=== PATIENT | male | born 1960 | race Hispanic/Latino ===

== ENCOUNTER 2017-02-02 06:57 | Day surgery (SDC) | payer BC ==
[2017-02-02] MEDS ORDERED: ECOTRIN PO ONE (07:24)
[2017-02-02] MEDS ORDERED: NACL 0.9% 500 ML 500 ML IV SCH (08:00)
[2017-02-02] MEDS ORDERED: VERSED ONE (09:06)
[2017-02-02] MEDS ORDERED: SUBLIMAZE ONE (09:06)
[2017-02-02] MEDS ORDERED: HEPARIN 10,000 UNITS/10 ML ONE (09:07)
[2017-02-02] MEDS ORDERED: NITROGLYCERIN SYRINGE 3 ML ONE (09:07)
[2017-02-02] MEDS ORDERED: HEPARIN/NS 5000 UNIT/500ML(CATH LAB) 1,000 ML IR ONE (09:07)
[2017-02-02] MEDS ORDERED: CALAN ONE (09:07)
[2017-02-02] MEDS ORDERED: XYLOCAINE 2% INFILTRATI ONE (09:07)
--- NOTE | 2017-02-02 10:15 | Short Stay Summary ---
Short Stay Documentation Date of service: 02/02/17 - History H&P: obtained from office - Allergies and Medications Current Medications: Allergies No Known Allergies Allergy (Verified 02/02/17 07:23) Home Medications Medication Instructions Recorded Confirmed Last Taken Type Aspirin EC [Aspirin Enteric Coated 81 mg PO QDAY 02/02/17 02/02/17 02/02/17 05: 00 History TAB] AtorvaSTATin [Lipitor] 40 mg PO DAILY 02/02/17 02/02/17 02/02/17 History Multivitamin Tab [Multiple Vitamin 1 each PO QDAY 02/02/17 02/02/17 02/01/17 History TAB (Theragran)] Tamsulosin [Flomax] 0.4 mg PO QDAY 02/02/17 02/02/17 02/01/17 History Active Medications Sodium Chloride (Nacl 0.9% 500 Ml) 500 mls @ 50 mls/hr IV DIRECT DERIAN Stop: 02/02/17 17:59 Last Admin: 02/02/17 07:32 Dose: 50 mls/hr - Brief post op/procedure progress note Date of procedure: 02/02/17 Pre-op diagnosis: cad Post-op diagnosis: same Procedure: see report Anesthesia: local Estimated blood loss: none Pathology: none - Disposition Condition at discharge: Good - Discharge Diagnoses (1) CAD (coronary artery disease) Status: Chronic Qualifiers: Coronary Disease-Associated Artery/Lesion type: [place] artery [place] vs. transplanted heart: N Associated angina: A (2) Hyperlipemia, mixed Status: Chronic (3) SOB (shortness of breath) on exertion Status: Acute Short Stay Discharge Plan Activity: advance as tolerated Diet: low fat, low cholesterol, low salt Wound: keep clean and dry Follow up with: ALIYAH CONDE MD [Staff Physician] - 7 Days
[2017-02-02 12:56] VITALS: BP 126/75
--- NOTE | 2017-02-02 17:32 | Cardiac Catherization Report ---
LEFT HEART CATHETERIZATION CLINICAL INFORMATION: This is a 57-year-old gentleman with premature family history of coronary artery disease, had known coronary artery disease and moderate calcification in 2012. Repeat coronary calcium score was severe, has some shortness of breath at times and is here for a left heart catheterization. Left heart catheterization performed via the right radial artery, sterile technique, local anesthesia, 6-[place] radial sheath inserted. Left system engaged with a 5-[place] JL3.5 guiding catheter. FINDINGS: Left main is large and patent, bifurcates into large caliber LAD, proximal is patent, but mid late proximal and early mid the bifurcation point has a 95% lesion as a post-stenotic dilatation and ectasia versus aneurysm and has an ostial diagonal 1 that has an 80% lesion of 2-0 vessel. The rest of the LAD is a large caliber vessel, is patent. Circumflex is a medium caliber vessel, is patent with mild luminal irregularities in proximal section, goes into a medium caliber OM1 that is patent. RCA engaged with JR4 catheter, is a large dominant vessel, proximal 20%, mid to distal is a large caliber, patent. PDA and PLV medium caliber vessel that is patent. LV gram done in the CHIQUI and FALCON view shows normal LV function. LVEDP is 17 mmHg, LV is 140/17, aortic is 135/85. No gradient across the aortic valve on pullback. 5-[place] catheters were taken over a guidewire. A 6-[place] radial sheath was discontinued. Radial dressing applied. No hematoma. No bleeding. SUMMARY: 1. Significant late proximal, early mid focal 95% lesion with poststenotic dilatation. In view of bifurcation with an ostial diagonal 1, he will be referred to [place] for robotic NI to LAD. 2. Left main patent, circumflex patent, OM1 patent; RCA proximal 20%, mid to distal patent PDA and PLV. 3. Normal LV function. Discussed this in detail with the patient and the patient's family. JOB# [id number] GUERA/KAUSHIK
== END 2017-02-02 12:35 | disposition home or self-care (01) ==
LOC: OPU 06:57
PROVIDERS: ATTEND Internal Medicine
DX: I25.10 Atherosclerotic heart disease of native coronary artery without angina pectoris (principal); E78.2 Mixed hyperlipidemia; Z79.82 Long term (current) use of aspirin; Z79.899 Other long term (current) drug therapy; Z82.3 Family history of stroke; Z82.49 Family history of ischemic heart disease and other diseases of the circulatory system
CPT/HCPCS: 93005; 93010; 93458; C1894; J1644; J2250; J3010; J7040; Q9967

== ENCOUNTER 2022-06-27 08:13 | Day surgery (SDC) | payer BC ==
[2022-06-27 09:29] LABS: Hematocrit 43.4 % (35.5-45.6); Hemoglobin 14.6 gm/dl (11.8-15.2); Mean Corpuscular HGB Conc 34 % (32-34); Mean Corpuscular Volume 91 fl (84-94); Platelet Count 143 K/mm3 (140-440); Red Blood Count 4.76 M/mm3 (3.65-5.03); Red Cell Distribution Width 13.4 % (13.2-15.2)
[2022-06-27 09:42] LABS: INR 0.82 (0.87-1.13)
[2022-06-27 09:43] LABS: BUN/Creatinine Ratio 12; Blood Urea Nitrogen 12 mg/dL (9-20); Calcium 9.4 mg/dL (8.4-10.2); Hemolysis Index 3
[2022-06-27] MEDS ORDERED: SODIUM CHLORIDE 0.9% 500 ML 500 ML IV SCH (10:00)
[2022-06-27 10:14] LABS: Partial Thromboplastin Time 29.7 Sec. (24.2-36.6)
[2022-06-27] MEDS ORDERED: HEPARIN/NS 5000 UNIT/500ML 1,000 ML IR ONE (10:22)
[2022-06-27] MEDS: fentaNYL 100 MCG/2 ML INJ ONE ×2 (10:43→10:50)
[2022-06-27] MEDS: MIDAZOLAM 2 MG/2 ML INJ ONE ×2 (10:43→10:50)
[2022-06-27] MEDS: VERAPAMIL 5 MG/2 ML INJ ONE ×2 (10:44→10:57)
[2022-06-27] MEDS: LIDOCAINE (2%) 20 MG/1 ML VIAL 20 ML MDV INFILTRATI ONE ×2 (10:44→10:52)
[2022-06-27] MEDS: HEPARIN 10,000 UNITS/10 ML VIAL ONE ×3 (10:44→11:11)
[2022-06-27] MEDS: NITROGLYCERIN SYRINGE 3 ML ONE ×2 (10:45→10:57)
[2022-06-27] MEDS ORDERED: SODIUM CHLORIDE 0.9% 1000 ML 1,000 ML ONE (10:46)
[2022-06-27] MEDS ORDERED: ALUM-MAG HYDROXIDE-SIMETHICONE 200-200-20MG/5ML ORAL LIQD 30 ML ONE (11:13)
[2022-06-27] MEDS ORDERED: CLOPIDOGREL 300 MG TAB ONE (11:13)
[2022-06-27] MEDS ORDERED: HEPARIN/NS 5000 UNIT/500ML 500 ML IR ONE (11:18)
--- NOTE | 2022-06-27 11:45 | Short Stay Summary ---
Short Stay Documentation Date of service: 06/27/22 - History H&P: obtained from office - Allergies and Medications Current Medications: Allergies No Known Allergies Allergy (Verified 02/02/17 07:23) Home Medications Medication Instructions Recorded Confirmed Last Taken Type Aspirin EC [Halfprin EC] 81 mg PO QDAY 02/02/17 06/27/22 06/27/22 History 1 TAB AtorvaSTATin [Lipitor] 40 mg PO DAILY 02/02/17 06/27/22 06/26/22 History 1 TAB Tamsulosin [Flomax] 0.4 mg PO QDAY 02/02/17 06/27/22 06/26/22 History 1 TAB Aspirin [Aspirin BABY CHEW TAB] 81 mg PO QDAY 06/27/22 06/27/22 06/27/22 History 1 TAB Clopidogrel [Plavix] 75 mg PO QDAY 06/27/22 06/27/22 06/27/22 History 1 TAB Ranolazine ER [Ranexa ER] 500 mg PO BID 06/27/22 06/27/22 06/26/22 History 1 TAB Trazodone HCl 100 mg PO BID 06/27/22 06/27/22 06/26/22 History 1 TAB Active Medications Sodium Chloride (Nacl 0.9% 500 Ml) 500 mls @ 50 mls/hr IV DIRECT DERIAN Stop: 06/27/22 19:59 Last Admin: 06/27/22 10:45 Dose: 300 mls - Brief post op/procedure progress note Date of procedure: 06/27/22 Pre-op diagnosis: CAD Post-op diagnosis: same Anesthesia: local Estimated blood loss: minimal - Hospital course Hospital course: Events today for cardiac cath. Patient had PCI of left main to circumflex with 1 JR. See cath report for full details. Patient tolerated procedure well with no complication. Patient meets criteria for same-day discharge. Patient developed a small hematoma that was expressed. Patient to be on DAPT therapy with aspirin and Plavix. Patient will be discharged and follow-up in the office as an outpatient. - Disposition Condition at discharge: Good Disposition: 01 HOME / SELF CARE / HOMELESS - Discharge Diagnoses (1) CAD (coronary artery disease) Status: Chronic (2) Hyperlipemia, mixed Status: Chronic Short Stay Discharge Plan Activity: advance as tolerated Diet: low fat, low cholesterol, low salt Wound: keep clean and dry, per your surgeon's advice Additional Instructions: follow up with Medical Doctor in 1 week, return to Emergency Room for medical emergency. Follow up with: HELEN WELLS PA [Primary Care Provider] - 7 Days ALIYAH CONDE MD [Staff Physician] - 7 Days Forms: CardCat PCI D/C Instructions Prescriptions: Clopidogrel [Plavix] 75 mg PO QDAY 30 Days #30 tablet
[2022-06-27] MEDS ORDERED: ACETAMINOPHEN 325 MG TAB PO PRN (12:00)
[2022-06-27] MEDS ORDERED: HYDROcodone/ACETAMINOPHEN 5-325 MG TAB PO PRN (12:00)
--- NOTE | 2022-06-27 12:37 | Cardiac Catherization Report ---
DATE OF SERVICE: 06/27/2022 LEFT HEART CATHETERIZATION/PERCUTANEOUS CORONARY INTERVENTION/INTRAVASCULAR ULTRASOUND REPORT CLINICAL INFORMATION: This is a 62-year-old male with known coronary arterial disease, hypertension, hyperlipidemia with a NI to LAD. had a negative IFR left main to circumflex, having worsening symptoms of angina and fatigue with activity despite medical therapy, is here for left heart catheterization. Procedure was done with moderate sedation started at 10:50 finished at 11:35, 45 minutes of moderate sedation. DESCRIPTION OF PROCEDURE: Procedure was done via the left radial artery, sterile technique and local anesthesia. A 6-Gibralt[place] radial sheath inserted. NI was subselected by an IM catheter, is a large caliber graft free of disease. The ostium, body, and anastomosis site feeds into the mid to distal LAD with retrograde fill back into the rest of the LAD. LV gram done in CHIQUI and FALCON view shows normal LV function, LVEDP 11 mmHg, LV is 127, aortic is 124/77. No gradient across the aortic valve on pullback. RCA engaged with JR4 is a large, dominant vessel that is patent with mild luminal irregularities from proximally and distally. PDA and PLV are medium caliber and patent. No change from last year. Left system engaged with JL3.5 catheter. Left main is [id number] caliber, patent; proximal, mid, and distal 50%. Ostial circumflex 80%, goes into a large OM. Circumflex OM1 is patent. LAD 95% with aneurysmal vessel. Small diagonal 1 is patent. Competitive flow noted. So percutaneous/intravascular ultrasound of the LAD; 1. Engaged the left system with an EBU 3.5 guiding catheter with side holes. 2. Crossed into the distal circumflex with Runthrough wire. 3. Predilated with 2.5 x 12 mm balloon x2 inflations and then further dilated with 3.0 x 15 mm x2 inflations. 4. Then, using a crystal wire, run through, delivered a drug-eluting Resolute 3.5 x 26 mm in the proximal circumflex up to the mid left main and removed the crystal wire and inflated at 12 atmospheres. 5. Put crystal wire down and then placed a noncompliant balloon 4.0 x 8 in the [id number] section of the stent and inflated at 8-15 atmospheres. 6. Using the crystal wire, put an IVUS catheter down, showed stent was opposed and expanded in the circumflex and in the left main. 7. Removed coronary wires, multiple angiograms, excellent angiographic result. No dissection or perforation noted. Distal portion of the stent has step-up and step-down noted. 8. A 6-Gibral[place] guiding catheter taken over a guidewire. A 6-[place] radial sheath was discontinued, reduced stenosis from 90% down to 0 with MARTA 3 flow, no dissection or perforation noted. 9. A 6-[place] guiding catheter taken over a guidewire. A 6-[place] radial sheath was discontinued. Radial band applied. No hematoma, no bleeding. SUMMARY: 1. Successful percutaneous coronary intervention of the left main to circumflex with a drug-eluting Resolute 3.5 x 26, postdilated with a 4.0 x 8. 2. LAD proximal has a 95% lesion. Competitive flow with a patent NI to LAD. RCA is a large, dominant vessel that is patent with mild luminal irregularities. Circumflex goes into a large OM1 that is patent and normal LV function. The patient will continue dual antiplatelet therapy post-PCI care. TID: [id number] RECEIPT: [id number] GUERA/COY/DC/VIKY
[2022-06-27 12:42] LABS: Total Cells Counted 100
[2022-06-27 12:43] LABS: Platelet Estimate Consistent w Auto; RBC Morphology Normal
--- NOTE | 2022-06-27 13:07 | Electrocardiograph Report ---
[facility] Test Date: 2022-06-27 Test Time: 10:23:36 Pat Name: ALMA SALDIVAR Department: Room: Gender: M Paper Carrier: KASSIDY : 1960 Requested By: ALIYAH CONDE Order Number: [id number] Reading MD: Lars Arce Measurements Intervals [place] Rate: 63 P: -10 DE: 135 QRS: -7 QRSD: 101 T: 15 QT: 448 QTc: 459 Interpretive Statements Sinus rhythm Left ventricular hypertrophy No previous ECG available for comparison Electronically Signed On 06-27-2022 13:06:51 EDT by Lars Arce
--- NOTE | 2022-06-27 13:08 | Electrocardiograph Report ---
[facility] Test Date: 2022-06-27 Test Time: 12:52:59 Pat Name: ALMA SALDIVAR Department: Room: Gender: M [employer] Supervisor: KASSIDY : 1960 Requested By: ALMA MARCUS Order Number: [id number] Reading MD: Lars Arce Measurements Intervals [place] Rate: 62 P: 3 MT: 149 QRS: -13 QRSD: 91 T: 36 QT: 444 QTc: 451 Interpretive Statements Sinus rhythm Left ventricular hypertrophy Compared to ECG 06/27/2022 10:23:36 No significant changes Electronically Signed On 06-27-2022 13:08:10 EDT by Lars Arce
[2022-06-27 16:02] VITALS: BP 118/70
== END 2022-06-27 17:00 | disposition home or self-care (01) ==
LOC: CATHLABREC 08:13
PROVIDERS: ATTEND Internal Medicine
DX: I25.118 Atherosclerotic heart disease of native coronary artery with other forms of angina pectoris (principal); R53.83 Other fatigue; E78.2 Mixed hyperlipidemia; Z87.891 Personal history of nicotine dependence; Z79.899 Other long term (current) drug therapy; Z79.82 Long term (current) use of aspirin; Z90.49 Acquired absence of other specified parts of digestive tract; Z98.890 Other specified postprocedural states
CPT/HCPCS: 36415; 80048; 85007; 85025; 85610; 85730; 92978; 93005; 93459; 99156; 99157; C1753; C1769; C1874; C1887; C1894; C9600; J1644; J1815; J2250; J3010; J3490; J7030; 92928; 93458; Q9967